=== PATIENT | male | born 1965 | race Caucasian/White ===

== ENCOUNTER 2020-04-28 17:42 | Outpatient (CLI) | payer BC, SELFPAY ==
--- NOTE | ~2020-04-28 | XR_ITS ---
XR knee RT min 4V 04/28/2020 18:07 Indication: Right knee pain Procedure: 4 views right knee Comparison: No prior studies for comparison. Findings: There is mild osteoarthritis of the right knee. No fracture or traumatic malalignment. No f ocal soft tissue abnormality. No foreign bodies. No joint effusion. Impression: 1: Mild osteoarthritis of the right knee. Reviewed, dictated and finalized at location A. Impression: 1: Mild osteoarthritis of the right knee.
== END 2020-04-28 17:43 | disposition home or self-care (01) ==
PROVIDERS: PCP Family Medicine; Visit Provider Family Medicine
DX: M17.11 Unilateral primary osteoarthritis, right knee (principal)
CPT/HCPCS: 73564

== ENCOUNTER 2023-06-28 11:33 | Outpatient (CLI) | payer BC, SELFPAY ==
[2023-06-28 19:01] LABS: Basophils Absolute Auto 0.1 K/mm3 (0.0-0.1); Basophils Percent Auto 0.7 % (0.2-1.2); Eosinophils Absolute Auto 0.3 K/mm3 (0-0.3); Eosinophils Percent Auto 2.7 % (0-4.4); Hematocrit 44.7 % (42.0-52.0); Hemoglobin 15.1 g/dL (14.0-18.0); Immature Granulocyte Absolute 0.04 K/mm3 (0.00-0.031); Immature Granulocyte Percent A 0.3 % (0-0.5); Lymphocytes Absolute Auto 2.38 K/mm3 (0.9-3.2); Lymphocytes Percent Auto 20.2 % (18.3-44.2); Mean Corpuscular HGB Conc 33.8 g/dl (32-36); Mean Corpuscular Hemoglobin 30.9 pg (26-34); Mean Corpuscular Volume 91.4 fl (80-100); Mean Platelet Volume 9.3 fl (7.4-10.4); Monocytes Absolute Auto 1.2 K/mm3 (0.1-0.6); Monocytes Percent Auto 9.8 % (2.6-8.5); Neutrophils Absolute Auto 7.8 K/mm3 (1.3-6.7); Neutrophils Percent Auto 66.3 % (45.5-73.1); Platelet Count Result 322 k/mm3 (150-375); Red Blood Count 4.89 M/mm3 (4.6-6.20); Red Cell Distribution Width 12.1 % (11.5-14.5); White Blood Count 11.8 K/mm3 (4.5-10.0)
== END 2023-06-28 11:34 | disposition home or self-care (01) ==
LOC: ANHGOSHLAB 11:34
PROVIDERS: PCP Family Medicine; Visit Provider Nurse Practitioner Family
DX: M25.529 Pain in unspecified elbow (principal)
CPT/HCPCS: 36415; 85025

== ENCOUNTER → 2023-06-28 11:42 | Outpatient (CLI) | payer BC, SELFPAY ==
--- NOTE | ~2023-06-28 | XR_ITS ---
EXAM: XR elbow LT 2V DATE: 06/28/2023 11:50 HISTORY: no known injury posterior elbow pain and swelling for 2weeks . COMPARISON: None available. FINDINGS: Normal mineralization. No fracture or dislocation. 8 x 21 mm osseous protuberance directed posteriorly. Pronounced soft tissue swelling over the olecranon. Potential swelling/inflammation ove r the osseous protuberance. Joint spaces and physes are maintained. No erosion or periosteal change. 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 Consider MRI of the elbow, primarily to assess f or the presence of and thickness of a cartilaginous cap. Likely olecranon bursitis, noting that infection/cellulitis cannot excluded. Posterior soft tissue swelling may be related to irritation from the osteochondroma/exostosis and/or the presumed bursitis. Reviewed, dictated and finalized at location K. 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 Consider MRI of the elbow, primarily to assess for the presence of and thickness of a cartilaginous cap. Likely olecranon bursitis, noting that infection/cellulitis cannot excluded. Posterior soft tissue swelling may be related to irritation from the osteochond hema/exostosis and/or the presumed bursitis.
== END ==
PROVIDERS: PCP Family Medicine; Visit Provider Nurse Practitioner Family
DX: M79.89 Other specified soft tissue disorders (principal); M25.522 Pain in left elbow
CPT/HCPCS: 73070